=== PATIENT | male | born 2000 ===

== ENCOUNTER 2018-02-27 20:42 | Emergency (ER) | payer BC ==
[2018-02-27] MEDS ORDERED: ONDANSETRON DISINTEGRATING 4 MG TAB ONE (20:56)
[2018-02-27] MEDS ORDERED: ONDANSETRON DISINTEGRATING 4 MG TAB PO ONE (20:58)
--- NOTE | 2018-02-27 21:00 | EDPHY ---
H & P Stated Complaint: ETOH WHULE AT THE [employer] GAME Time Seen by Provider: 02/27/18 20:53 HPI/ROS: CHIEF COMPLAINT: Vomiting, intoxicated HISTORY OF PRESENT ILLNESS: Patient is a 17-year-old man who is been drinking and watching the football game. He began vomiting. He was taken to the medical tent with a tried to start an IV but cannot. No history of trauma. He has no complaints. He denies injury. Severity: Moderate Modifying factors: None REVIEW OF SYSTEMS: Constitutional: denies: chills, fever, recent illness, recent injury EENTM: denies: blurred vision, double vision, nose congestion Respiratory: denies: cough, shortness of breath Cardiac: denies: chest pain, irregular heart rate, lightheadedness, palpitations Gastrointestinal/Abdominal: denies: abdominal pain, diarrhea, nausea, vomiting, blood streaked stools Genitourinary: denies: dysuria, frequency, hematuria, pain Musculoskeletal: denies: joint pain, muscle pain Skin: denies: lesions, rash, jaundice, bruising Neurological: denies: headache, numbness, paresthesia, tingling, dizziness, weakness Hematologic/Lymphatic: denies: blood clots, easy bleeding, easy bruising Immunologic/allergic: denies: HIV/AIDS, transplant 10 systems reviewed and negative except as noted Physical Exam General Appearance: WD/WN, no apparent distress, obtunded (But arousable with painful stimulation) EENT: PERRL/EOMI, normal ENT inspection, TMs normal, pharynx normal Neck: non-tender, full range of motion, supple, normal inspection Respiratory: chest non-tender, lungs clear, normal breath sounds Cardiac/Chest: normal peripheral pulses, regular rate, rhythm, P Peripheral Pulses: 2+: carotid (R), carotid (L), femoral (R), femoral (L), dorsalis-pedis (R), dorsalis-pedis (L) Abdomen: normal bowel sounds, non-tender, soft Extremities: normal range of motion, non-tender, normal inspection, normal capillary refill Neurological: calm, 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 No: alert (Somnolent) Appearance: appropriate appearance, appropriate insight, neat, denies illness Behavior/Eye Contact/Speech: cooperative, decreased rate of speech Thoughts/Hallucinations: normal thought pattern, no apparent hallucination Skin: normal color, warm/dry Source: Patient - Personal History Current Tetanus/Diphtheria Vaccine: Yes Current Tetanus Diphtheria and Acellular Pertussis (TDAP): Yes - Medical/Surgical History Hx Asthma: No Hx Chronic Respiratory Disease: No Hx Diabetes: No Hx Cardiac Disease: No Hx Renal Disease: No Hx Cirrhosis: No Hx Alcoholism: No Hx HIV/AIDS: No Hx Splenectomy or Spleen Trauma: No Other PMH: CORWIN - Family History Significant Family History: No pertinent family hx - Social History Smoking Status: Never smoked Alcohol Use: Heavy Constitutional: Initial Vital Signs Temperature (C) 36.8 C 02/27/18 20:40 Heart Rate 86 02/27/18 20:40 Respiratory Rate 18 02/27/18 20:40 Blood Pressure 110/65 02/27/18 20:40 O2 Sat (%) 96 02/27/18 20:40 O2 Delivery Mode Room Air Allergies/Adverse Reactions: No Known Allergies Allergy (Unverified 02/27/18 20:53) Home Medications: Medication Instructions Recorded buPROPion XL [Wellbutrin Xl] 450 mg PO DAILY 02/27/18 Medical Decision Making ED Course/Re-evaluation: 10:05 p.m. the patient is ambulatory. He cannot remember the past, for his phone. Otherwise he is ready for discharge. Differential Diagnosis: Partial list of the Differential diagnosis considered include but were not limited to; intoxication, substance abuse and although unlikely based on the history and physical exam, I also considered head injury, infection. I discussed these differential diagnoses and the plan with the patient as well as the usual and expected course. The patient understands that the diagnosis is provisional and that in medicine we are not always correct and that further workup is often warranted. Usual and customary warnings were given. All of the patient's questions were answered. The patient was instructed to return to the emergency department should the symptoms at all worsen or return, otherwise to followup with the physician as we discussed. - Data Points Medications Given: Discontinued Medications Ondansetron HCl (Zofran Odt) 4 mg PO EDNOW ONE Stop: 02/27/18 20:59 Last Admin: 02/27/18 21:05 Dose: 4 mg Departure - Departure Disposition: Home, Routine, Self-Care Clinical Impression: Alcoholic intoxication Qualifiers: Complication of substance-induced condition: uncomplicated Qualified Code(s): F10.920 - Alcohol use, unspecified with intoxication, uncomplicated Condition: Fair Instructions: Alcohol Intoxication (ED) Referrals: Patient,NotPresent [Primary Care Provider] - As per Instructions [facility],. [Clinic] - As per Instructions
[2018-02-27 22:26] VITALS: BP 120/70
== END 2018-02-27 22:27 | disposition home or self-care (01) ==
DX: F10.929 Alcohol use, unspecified with intoxication, unspecified (principal); R11.10 Vomiting, unspecified